=== PATIENT | male | born 1980 ===

== ENCOUNTER 2018-07-29 15:50 | Emergency (ER) | payer OTHER ==
[2018-07-29 16:21] VITALS: TEMP 98
--- NOTE | 2018-07-29 16:59 | C.PDOC ---
History Of Present Illness 38 y/o male presents to the ED complaining of epigastric and left upper abdominal pain since this morning. He described pain radiating into his chest and burning, associated with an "acid taste" in his mouth. 1 hour ago pain resolved. No complaints at present. Of note patient has history of slightly elevated LFTs in the past. Patient is a heavy drinker. He states he is concerned that liver enzymes may be further elevated, prompting him to come to the ED. Patient denies any vomiting, diarrhea, fevers, chills, or cold sweats. Time Seen by Provider: 07/29/18 16:24 Chief Complaint (Nursing): Chest Pain History Per: Patient History/Exam Limitations: no limitations Onset/Duration Of Symptoms: Hrs Current Symptoms Are (Timing): Gone Quality: Burning Past Medical History Reviewed: Historical Data, Nursing Documentation, Vital Signs Vital Signs: Last Vital Signs Temp 98.0 F 07/29/18 16:20 Pulse 102 H 07/29/18 16:20 Resp 16 07/29/18 16:20 BP 122/77 07/29/18 16:20 Pulse Ox 98 07/29/18 16:20 - Medical History PMH: Hypercholesterolemia Other PMH: Alcohol abuse, Elevated LFTs Other Surgeries: Brain surgery Family History: States: No Known Family Hx - Social History Hx Alcohol Use: Yes (daily) Hx Substance Use: No - Immunization History Hx Tetanus Toxoid Vaccination: (unk) Hx Influenza Vaccination: No Hx Pneumococcal Vaccination: (unk) Review Of Systems Except As Marked, All Systems Reviewed And Found Negative. Constitutional: Negative for: Fever, Chills, Sweats Cardiovascular: Negative for: Palpitations Respiratory: Negative for: Shortness of Breath Gastrointestinal: Positive for: Abdominal Pain (upper). Negative for: Nausea, Vomiting, Diarrhea Musculoskeletal: Negative for: Back Pain Neurological: Negative for: Weakness, Headache Physical Exam - Physical Exam Appears: Non-toxic, No Acute Distress Skin: Warm, Dry, No Diaphoretic Head: Atraumatic, Normacephalic Eye(s): bilateral: Normal Inspection, PERRL, EOMI Oral Mucosa: Moist Neck: Normal ROM Chest: Symmetrical, No Tenderness Cardiovascular: Rhythm Regular, No Murmur Respiratory: Normal Breath Sounds, No Rales, No Rhonchi, No Wheezing Gastrointestinal/Abdominal: Soft, No Tenderness, No Guarding, No Rebound Back: No CVA Tenderness, No Vertebral Tenderness Extremity: Bilateral: Atraumatic, Normal Color And Temperature, Normal ROM Pulses: Left Radial: Normal, Right Radial: Normal Neurological/Psych: Oriented x3 Gait: Steady ED Course And Treatment - Laboratory Results Result Diagrams: 07/29/18 17:00 07/29/18 17:00 ECG: Interpreted By Me, Viewed By Me ECG Rhythm: Sinus Rhythm Interpretation Of ECG: No ST elevation, QT normal. Rate From EC (bpm) O2 Sat by Pulse Oximetry: 98 (RA) Pulse Ox Interpretation: Normal Medical Decision Making Medical Decision Making: Plan: --EKG --CMP --Lipase --CBC --20 mg PO Pepcid --Reevaluation Labs reviewed, discussed results with patient. [id number] Patient reports improvement in symptoms. Abdomen non-tender on exam. Patient will be discharged home, to follow up with PMD or in the clinic this week. Disposition Counseled Patient/Family Regarding: Diagnosis, Need For Followup, Rx Given - Disposition Referrals: Trino Fermin MD [Medical Doctor] - Disposition Time: 17:40 Condition: STABLE Prescriptions: Famotidine [Pepcid] 40 mg PO DAILY #14 tablet Instructions: Acid Reflux (Gastroesophageal Reflux Disease), Adult (DC), Chest Pain (DC) Forms: [facility] ([place]ayan) - POA Present On Arrival: None - Clinical Impression Clinical Impression: GERD (gastroesophageal reflux disease) - Scribe Statement The provider has reviewed the documentation as recorded by the Eugenie Mendez Provider Attestation: All medical record entries made by the Ashleyibtamar were at my direction and personally dictated by me. I have reviewed the chart and agree that the record accurately reflects my personal performance of the history, physical exam, medical decision making, and the department course for this patient. I have also personally directed, reviewed, and agree with the discharge instructions and disposition.
[2018-07-29 17:07] LABS: BASO # 0.1 K/uL (0.0-0.2); BASO % 1.1 % (0.0-2.0); EOS # 0.3 K/uL (0.0-0.7); EOS % 2.9 % (0.0-4.0); HEMOGLOBIN 16.2 g/dL (12.0-18.0); LYMPH # 2.6 K/uL (1.0-4.3); LYMPH % 25.9 % (20.0-40.0); MEAN CELL VOLUME 86.4 fL (80.0-94.0); MEAN CORPUSCULAR HEMOGLOBIN 29.7 pg (27.0-31.0); MEAN CORPUSCULAR HGB CONC 34.3 g/dL (33.0-37.0); MEAN PLATELET VOLUME 9.2 fL (7.2-11.7); MONO % 10.1 % (0.0-10.0); NEUT # 6.1 K/uL (1.8-7.0); RBC 5.47 Mil/uL (4.40-5.90); RED CELL DISTRIBUTION WIDTH 13.1 % (11.5-14.5); WHITE BLOOD COUNT 10.1 K/uL (4.8-10.8)
[2018-07-29 17:24] LABS: ALB/GLOB RATIO 1.6 (1.0-2.1); ALBUMIN 4.4 g/dL (3.5-5.0); ALT/SGPT 116 U/L (21-72); AST/SGOT 53 U/L (17-59); BLOOD UREA NITROGEN 16 mg/dL (9-20); CALCIUM 8.8 mg/dl (8.6-10.4); GFR NON-AFRICAN AMERICAN > 60; LIPASE 104 U/L (23-300)
[2018-07-29 18:14] VITALS: BP 122/83; PULSE 80; RESP 12; O2SAT 100
--- NOTE | 2018-07-30 21:31 | CARD ---
APPROVED REPORT Date of service: 07/29/2018 EKG Measurement Heart [id number] <Conclusion> Normal sinus rhythm Possible Left atrial enlargement Borderline ECG
== END 2018-07-29 18:31 | disposition home or self-care (01) ==
LOC: C.ER 15:50
DX: K21.9 Gastro-esophageal reflux disease without esophagitis (principal); E78.00 Pure hypercholesterolemia, unspecified

== ENCOUNTER 2018-10-08 00:27 | Emergency (ER) | payer OTHER | END 2018-10-08 00:35 | disposition left against medical advice (07) | LOC: C.ER 00:27 | DX: Z02.89 Encounter for other administrative examinations (principal); F19.10 Other psychoactive substance abuse, uncomplicated ==